=== PATIENT | female | born 1995 | race Caucasian/White ===

== ENCOUNTER 2017-02-11 13:05 | Inpatient (IN) | payer OTHER ==
[~2017-02-11] VITALS: Ht 170.2 cm; Wt 51.0 kg
--- NOTE | ~2017-02-11 | A ---
[facility] Nutrition Therapy DATE: 02/12/17 Patient: PHILLIP BURGOS Physician: MARIA G Address: [address] [place] [address] Room/Bed: [address], Zip: [place] [address] Admit Date: 02/11/17 Date of : [birth year] Height: 5 7 Weight: 112 51 NUTRITIONAL ASSESSMENT: REASON: Low BMI + Dx + NPO status in ICU Admitting dx: 21 y/o female admitted with DKA, drug abuse PMH: No H&P available for review at this time Anthropometrics: Ht: 67", Wt: 112 lbs, BMI: 17 (underweight) Labs: K+ 3.0, Phos 2.1, glucose 208, POC 106-260, A1C pending Meds: phenergan/zofran prn, insulin drip, D50 I/O & Bowel function: Last BM unknown Skin Integrity: No issues, no edema Assessment: See admitting dx and PMH as stated above. Chart unavailable for review at this time, no H&P available. RN provided information during rounds. Pt is clinically underweight however her weight appears stable per past weights in [employer]. She has a hx of drug abuse and questionable non-compliance. No nutrition queries or malnutrition risk screen available at this time. She is NPO on an insulin drip and is sleeping at this time, therefore is not appropriate for interview. See RD recs, will follow hospital course to further determine weight hx, adequacy of PO intake and diet education needs. Dx: 1) Underweight r/t dietary habits, drug abuse AEB BMI 17. 2) Altered nutrition-related lab values r/t hx DM AEB glucose POC 106-260, DKA. Intervention: 45 g carb/meal diet once appropriate, diet education? Monitoring, Evaluation and Goals: 1. Tolerance of PO diet advancement with oral intake > 50% of meals. 2. Gradual weight gain towards a healthy BMI range. 3. A1C, glucose, lytes WNL. Monitor: per protocol, criteria to determine if above goals met Recommendations: 1. Once insulin drip is D/C advance to 45-60g carb/meal diet as tolerated. If oral intake is < 50% of meals please order Glucerna shakes BID. [facility] Nutrition Therapy DATE: 02/12/17 Patient: PHILLIP BURGOS Physician: MARIA G Address: [address] [place] [address] Room/Bed: [address], Zip: [place] [address] Admit Date: 02/11/17 Date of : [birth year] Height: 5 7 Weight: 112 51 2. Replace lytes prn (K/Phos low). 3. Please weigh q 3 days for monitoring purposes as the pt is clincally underweight. 4. RD will follow to determine diet education needs as appropriate. Mild nutrition risk Respectfully, Alyce Clarke, BLAYNE, LD [facility] and Nutritional Services [facility] cc: client file
--- NOTE | ~2017-02-11 | EKG ---
PATIENT: PHILLIP BURGOS UNIT #: [id number] Ventricular Rate: 92 BPM Atrial Rate: 92 BPM P-R Interval: 158 ms QRS Duration: 84 ms Q-T Interval: 380 ms QTC Calculation(Bezet): 469 ms P [place]: 17 degrees Calculated R [place]: 60 degrees Calculated T [place]: 30 degrees Diagnosis Line: Normal sinus rhythm Diagnosis Line: Normal ECG Diagnosis Line: No previous ECGs available Diagnosis Line: Confirmed by ERLINDA SMART MD ([id number]) on Diagnosis Line: 02/12/2017 2:00:15 PM INTERPRETING MD: BERRY VELARDE
--- NOTE | ~2017-02-11 | CR72 ---
[facility] A Service of [facility] & [facility] RADIOLOGY TEXT RESULTS PATIENT: PHILLIP BURGOS LOCATION: [place] [id number] : [birth year] UNIT #: [id number] AGE: [address]: Carlos Enrique Boogie MD SEX: F ORDER DR: [id number] [facility] [address] [place], [place] [address] [id number] MR#: [id number] #: [id number] NAME: PHILLIP BURGOS : 1995 SEX: F STUDY DATE/TIME: 02/11/2017 15:45 UNIT: [facility] ROOM: [facility] STUDY DESCRIPTION: CR Chest Single View Portable Attending Physician: Carlos Enrique Boogie M.D. Ordering Physician: Carlos Enrique Boogie M.D. MEDICAL IMAGING REPORT This report is preliminary unless electronic signature is present EXAM Portable chest, 02/11/2017 INDICATION Cough, congestion, pneumonia since this morning. COMPARISON 09/08/2014 FINDINGS A portable view of the chest was obtained. Heart size and vascularity are normal and the lungs are clear and the bones are unremarkable. IMPRESSION No active disease. Dictated by... Pascual Lu M.D. THIS IS AN ELECTRONICALLY VERIFIED REPORT Pascual Lu M.D. at 02/12/2017 6:09 AM KE/wendy TD: 02/12/2017 05:08 JOB #: [id number] MEDICAL IMAGING REPORT Page 1 of 1 COPY
--- NOTE | ~2017-02-11 | HP ---
Unit #: [id number] #: [id number] Patient: PHILLIP BURGOS [id number] [place], [place] [address] [id number] I MR#: [id number] NAME: PHILLIP BURGOS. ROOM: [facility] Age: 21 Sex: F Admission Date: 02/11/2017 : 1995 Attending Physician: Carlos Enrique Boogie M.D. HISTORY AND PHYSICAL REASON FOR ADMISSION Nausea, vomiting and high blood sugar. HISTORY OF PRESENT ILLNESS This is a 21-year-old female with past medical history significant for polysubstance abuse and diabetes who presented to the emergency room at [facility] with nausea, vomiting and high blood sugar. The patient stated that she did not take her medication, and she did not clarify why. Per her mom, this is a frequent presentation for the patient, and she is very noncompliant. The patient denied any other symptoms, like fever, chills, cough, shortness of breath, diarrhea. However, per nursing staff, the patient had copious amount of vaginal discharge on presentation. PAST MEDICAL HISTORY 1. Diabetes. 2. Polysubstance abuse. PAST SURGICAL HISTORY None. SOCIAL HISTORY The patient smokes less than a pack per day for the last 3 years. No history of alcohol abuse, but she has a history of marijuana abuse. FAMILY HISTORY Diabetes and hypertension. ALLERGIES No known drug allergies. HOME MEDICATIONS We are trying to obtain it from her pharmacy. REVIEW OF SYSTEMS A 12-point review of systems was obtained and was negative except for what was mentioned in the HPI. PHYSICAL EXAMINATION GENERAL: The patient is sleepy but easy to arouse. No acute distress. VITAL SIGNS: Blood pressure 119/62, respiratory rate 16, O2 saturation 98%. HEENT: Atraumatic, normocephalic. PERRLA, EOMI. Unit #: [id number] #: [id number] Patient: PHILLIP BURGOS NECK: Supple. No JVD. No lymphadenopathy. CHEST: Clear to auscultation bilaterally. HEART: S1, S2. No murmur, gallops or rubs. ABDOMEN: Soft, nontender. Bowel sounds positive. No hepatosplenomegaly. EXTREMITIES: No edema or cyanosis. SKIN: No rashes. DIGESTER: Awake, alert, oriented x3. No focal motor/sensory deficits. LABS AND OTHER TESTS LABORATORY: CO2 15, phosphorous 2.1, sodium 137. White blood count 12.3, hemoglobin 15.2, platelets 306. IMAGING TESTS: Chest x-ray is clean, and no acute infiltrate. ASSESSMENT 1. DKA. 2. Vaginitis/bacterial vaginosis. 3. Polysubstance abuse. PLAN 1. Patient will be continued on insulin drip and IV fluid per DKA protocol. 2. Will start the patient on clindamycin 300 mg p.o. b.i.d. for 7 days for bacterial vaginosis. 3. Will give the patient azithromycin 1 gram p.o. x1 for possible gonorrhea and chlamydia. 4. NPO for now but we will reassess once her anion gap corrects. 5. DVT prophylaxis. Will add Lovenox if she is inactive. Case was discussed with the patient and her mother and staff. NOTE: Critical care time spent on this patient was 32 minutes, including lcjb-by-tago time with the patient and data review and medical literature research. Dictated by Jess Carias TD: 02/12/2017 16:15 JOB #: [id number] HISTORY AND PHYSICAL Page 1 of 1 X ALBERTO LOZANO MD HISTORY AND PHYSICAL
[2017-02-11 15:37] LABS: ARTERIAL BLD GAS O2 SATURATION 97.6 % (90.0-100.0); ARTERIAL BLOOD GAS CARBOXY HB 1.1 %sat (0.0-9.0); ARTERIAL BLOOD GAS HCO3 12.8 mmol/L; ARTERIAL BLOOD GAS MET HB 0.3 %sat (0.0-2.0); ARTERIAL BLOOD GAS PCO2 28.9 mmHg (35.0-45.0); ARTERIAL BLOOD GAS pH 7.254 (7.350-7.450)
[2017-02-11 15:39] LABS: ARTERIAL BLOOD GAS ALLEN TEST N; ARTERIAL BLOOD GAS ART SITE RIGHT RADIAL; ARTERIAL DRAW? YES
[2017-02-11 15:54] LABS: BASOPHIL# 0.1 X10e3 (0-0.3); BASOPHIL% 0.8 % (0-2.5); HEMATOCRIT 50.2 % (35.0-45.0); HEMOGLOBIN 16.8 gm/dL (12.0-16.0); LYMPHOCYTE# 2.1 X10e3 (1.0-3.5); LYMPHOCYTE% 16.8 % (17.0-45.0); MEAN CELL VOLUME 93.8 FL (83-96); MEAN CORPUSCULAR HEMOGLOBIN 31.5 PG (28-34); MEAN CORPUSCULAR HGB CONC 33.6 g/dL (30-36); MEAN PLATELET VOLUME 7.6 FL (6.5-11.5); MONOCYTE# 0.7 X10e3 (0-1.0); MONOCYTE% 5.8 % (3.0-12.0); NEUTROPHIL# 9.7 X10e3 (1.5-7.1); NEUTROPHIL% 76.6 % (40-75); PLATELET COUNT 344 X10e3 (140-420); RED BLOOD COUNT 5.35 X10e (3.90-5.30); RED CELL DISTRIBUTION WIDTH 13.9 % (11.0-15.5); WHITE BLOOD COUNT 12.7 X10e3 (4.0-10.5)
[2017-02-11 15:57] LABS: DIFF IND NO
[2017-02-11] MEDS ORDERED: HUMALOG KW100 UNIT/1 (16:12)
[2017-02-11] MEDS ORDERED: LANTUS SOL100 UNIT/1 SUBQ (16:12)
[2017-02-11 16:25] LABS: ALBUMIN SERUM 4.3 g/dL (3.5-5.0); BILIRUBIN,TOTAL 1.5 mg/dL (0.2-2.0); BUN/CREATININE RATIO 38.57; CALCIUM SERUM 9.6 mg/dL (8.4-10.2); CREATININE SERUM 0.7 mg/dL (0.6-1.4); GLOM FILT RATE Estimated 125.6 mL/min (>60); POTASSIUM 4.2 mmol/L (3.5-5.1); PROTEIN TOTAL SERUM 7.4 g/dL (6.0-8.3)
[2017-02-11 16:34] LABS: BETA HYDROXYBUTYRATE 3.75 MMOL/L (0.02-0.27)
[2017-02-11 19:48] LABS: URINE SOURCE CATH
[2017-02-11 19:55] LABS: URINE APPEARANCE CLEAR; URINE BILIRUBIN NEG (NEG); URINE BLOOD NEG (NEG); URINE COLOR YELLOW; URINE GLUCOSE 500 MG/DL (NEG); URINE KETONE 3+ (NEG); URINE LEUKOCYTE ESTERASE NEG (NEG); URINE NITRATE NEG (NEG); URINE PROTEIN 3+ (NEG); URINE SPECIFIC GRAVITY 1.026 (1.003-1.035)
[2017-02-11 19:57] LABS: URINE BACTERIA AUWI NEG (NEGATIVE); URINE SQUAMOUS EPITHELIAL CELL FEW /[HPF]
[2017-02-11 20:05] LABS: CULTURE INDICATED? NO
[2017-02-11 20:36] LABS: BUN/CREATININE RATIO 35.71; CALCIUM SERUM 8.9 mg/dL (8.4-10.2); CREATININE SERUM 0.7 mg/dL (0.6-1.4); GLOM FILT RATE Estimated 125.6 mL/min (>60); POTASSIUM 3.8 mmol/L (3.5-5.1)
[2017-02-12 01:35] LABS: BUN/CREATININE RATIO 34.28; CALCIUM SERUM 9.2 mg/dL (8.4-10.2); CREATININE SERUM 0.7 mg/dL (0.6-1.4); GLOM FILT RATE Estimated 125.6 mL/min (>60); POTASSIUM 3.6 mmol/L (3.5-5.1)
[2017-02-12 06:38] LABS: BASOPHIL# 0.1 X10e3 (0-0.3); BASOPHIL% 0.5 % (0-2.5); EOSINOPHIL% 0.1 % (0.0-7.0); HEMATOCRIT 45.8 % (35.0-45.0); HEMOGLOBIN 15.2 gm/dL (12.0-16.0); LYMPHOCYTE% 16.3 % (17.0-45.0); MEAN CELL VOLUME 94.8 FL (83-96); MEAN CORPUSCULAR HEMOGLOBIN 31.5 PG (28-34); MEAN CORPUSCULAR HGB CONC 33.2 g/dL (30-36); MEAN PLATELET VOLUME 7.5 FL (6.5-11.5); MONOCYTE# 0.9 X10e3 (0-1.0); MONOCYTE% 7.7 % (3.0-12.0); NEUTROPHIL# 9.3 X10e3 (1.5-7.1); NEUTROPHIL% 75.4 % (40-75); PLATELET COUNT 306 X10e3 (140-420); RED BLOOD COUNT 4.83 X10e (3.90-5.30); RED CELL DISTRIBUTION WIDTH 14.1 % (11.0-15.5); WHITE BLOOD COUNT 12.3 X10e3 (4.0-10.5)
[2017-02-12 06:39] LABS: DIFF IND NO
[2017-02-12 07:06] LABS: CALCIUM SERUM 9.3 mg/dL (8.4-10.2); CREATININE SERUM 0.7 mg/dL (0.6-1.4); GLOM FILT RATE Estimated 125.6 mL/min (>60); MAGNESIUM 1.6 mg/dL (1.6-3.0); PHOSPHOROUS 2.1 mg/dL (2.5-4.6)
[2017-02-12 13:30] LABS: BUN/CREATININE RATIO 28.33; CALCIUM SERUM 8.8 mg/dL (8.4-10.2); CREATININE SERUM 0.6 mg/dL (0.6-1.4); GLOM FILT RATE Estimated 132.1 mL/min (>60); POTASSIUM 3.4 mmol/L (3.5-5.1)
[2017-02-14 07:22] LABS: CHLAMYDIA TRACH Not Detected (Not Detected); N GONOR Not Detected (Not Detected)
== END 2017-02-12 16:09 | disposition left against medical advice (07) | DRG 638 ==
LOC: CEDOF 14:32 → UNDOADMIN 14:32 → CICCU3 14:40 → CEDOF 14:40 → CICCU3 15:15
PROVIDERS: Internal Medicine; Internal Medicine Pulmonary Disease
DX: E13.10 Other specified diabetes mellitus with ketoacidosis without coma (principal); E44.1 Mild protein-calorie malnutrition; Z68.1 Body mass index [BMI] 19.9 or less, adult; F17.210 Nicotine dependence, cigarettes, uncomplicated; F12.10 Cannabis abuse, uncomplicated; Z79.84 Long term (current) use of oral hypoglycemic drugs; N76.0 Acute vaginitis; Z91.19 Patient's noncompliance with other medical treatment and regimen
CPT/HCPCS: 36600; 71010; 80048; 80053; 81003; 82010; 82150; 82803; 82947; 83036; 83690; 83735; 84100; 85025; 87040; 87491; 87591; 87808; 87905; 93005; J1815; J2550

== ENCOUNTER 2017-02-13 08:18 | Inpatient (IN) | payer OTHER ==
[~2017-02-13] VITALS: Ht 170.2 cm; Wt 57.0 kg
--- NOTE | ~2017-02-13 | CO ---
Unit #: [id number] #: [id number] Patient: PHILLIP BURGOS [id number] [facility] [address]. [place], [place] [address] [id number] I MR#: [id number] NAME: PHILLIP BURGOS. ROOM: [facility] Age: 21 Sex: F Admission Date: 02/13/2017 : 1995 Attending Physician: Jazmyn Gibbs M.D. Primary Care Physician: Costa Abbasi M.D. Consultation Date: 02/13/2017 CONSULTATION REPORT REASON FOR CONSULTATION ICU management. High blood sugar. HISTORY OF PRESENT ILLNESS This is a 21-year-old female who is well known to our service from before, who just left against medical advice from [facility] yesterday after a short admission for diabetic ketoacidosis. Apparently the patient is well known to have noncompliance and leaving AMA for the same reason every admission. She was admitted to multiple hospitals, mainly at [facility] in the past. Last admission was here at [facility] for diabetic ketoacidosis and SCDs. The patient signed herself out against medical advice yesterday and went home. However, she called EMS this morning feeling bad, with nausea and high blood sugar. PAST MEDICAL HISTORY 1. Diabetes. 2. Polysubstance abuse. 3. Bacterial vaginosis. PAST SURGICAL HISTORY None. SOCIAL HISTORY The patient smokes less than a pack per day for the last three years. No history of alcohol or IV drug abuse, but she is positive for marijuana and methamphetamine. FAMILY HISTORY Diabetes and hypertension. ALLERGIES No known drug allergies. HOME MEDICATIONS Insulin, but the patient is very noncompliant. REVIEW OF SYSTEMS Twelve point review of systems was obtained and negative except for what Unit #: [id number] #: [id number] Patient: PHILLIP BURGOS was mentioned in the history of present illness. PHYSICAL EXAMINATION GENERAL: The patient is awake and alert, in no acute distress, but she appears sleepy. VITALS: Blood pressure us 121/69, respiratory rate 16, O2 saturations 98% on room air. HEENT: Atraumatic, normocephalic. Pupils equally round and reactive to light and accommodation. Extraocular muscles intact. NECK: Supple. No jugular venous distension. No lymphadenopathy. CHEST: Clear to auscultation bilaterally. HEART: S1 and S2. No murmur, gallop or rubs. ABDOMEN: Soft, nontender and bowel sounds positive. No hepatosplenomegaly. EXTREMITIES: No edema or cyanosis. SKIN: No rashes. NEUROLOGIC: Awake, alert and oriented times three. No focal motor/sensory deficits. DIAGNOSTIC STUDIES LABORATORY: Bicarb 5, calcium 7.8, phosphorus 2.1, white blood cell count 10.5, hemoglobin 17.6. ASSESSMENT 1. Severe diabetic ketoacidosis. 2. Bacterial vaginosis. 3. Noncompliance. 4. Polysubstance abuse. PLAN 1. The patient will be admitted to the ICU for at least the next 24 hours. 2. Strict control of her blood sugar through IV insulin and IV hydration. 3. Will watch her family as they were noted yesterday to bring her some food while she was still in the diabetic ketoacidosis condition. 4. Will continue clindamycin and the patient received 1 g of azithromycin yesterday for chlamydia and gonorrhea. 5. DVT prophylaxis. I would like to thank Dr. Gibbs for allowing me to be part of this patient's care. Dictated by... Jess Carias TD: 02/13/2017 14:21 JOB #: [id number] Unit #: [id number] #: [id number] Patient: PHILLIP BURGOS CONSULTATION REPORT Page 1 of 1 X ALBERTO LOZANO MD CONSULTATION REPORT
--- NOTE | ~2017-02-13 | A ---
[facility] Nutrition Therapy DATE: 02/14/17 Patient: PHILLIP BURGOS Physician: ERNESTINE Address: [address] [place] [address] Room/Bed: [address] [place] [address], Zip: [place] [id number] Admit Date: 02/13/17 Date of : [birth year] Height: 5 7 Weight: 125 57 NUTRITIONAL ASSESSMENT: REASON: PT SEEN FOR DX, LOW BMI PT IS 21 Y.O. FEMALE ADMITTED FOR DKA PMH: DM, POLYSUBSTANCE ABUSE, NONCOMPLIANCE Anthropometrics: 5'7", WT: 119# (PER PT) (54 KG), BMI: 18.6, 88%IBW -WEIGHTS HAVE RANGED 110-123# SINCE 02/11/17 Labs: GLU: 181, NA+:134, CREAT: 0.5, ALB: 3.0, M.4, PHOS: 2.1 (02/12/17), A1c: 12.9 (REFLECTS POOR GLUCOSE MANAGEMENT) Meds: LEVEMIR, NOVOLOG, NACL, KCL, ZOFRAN I/O & Bowel function: 5967/2 Skin Integrity: NO KNOWN SKIN ISSUES, NO EDEMA Assessment: CHART REVIEWED AND EVENTS NOTED. PT SEEN FOR DX + PT UNDERWEIGHT. OF NOTE, RD ASSESSED PT ON 02/12/17 IN ICU, PT LEFT AMA. PT WAS RE-ADMITTED FOR DX ABOVE. PT SLEEPY/LETHARGIC AT TIME OF VISIT REPORTING GOOD PO INTAKE AND APPETITE. MOTHER AT BEDSIDE REPORTS PT "EATS LIKE A HORSE". PT ADDS N/V/D SUBSIDING THIS AM. OF NOTE, PT'S WEIGHTS SINCE 02/11/17 HAVE BEEN 110-123#. PT CURRENTLY ON CC DIET. RD ENCOURAGED ADEQUATE KCAL AND PROTEIN INTAKE, PT AGREED TO GLUCERNA SHAKES BID. RD ALSO PROVIDED WRITTEN AND VERBAL CC DIET EDUCATION. PT AND MOTHER DEMONSTRATED UNDERSTANDING OF THE TOPIC, REPORTED PT DOES NOT FOLLOW ANY SPECIFIC DIET AT HOME. PT REPORTED NO DIET QUESTIONS AT THIS TIME. RD TO FOLLOW. Dx: 1. UNDERWEIGHT R/T LIFESTYLE, DRUG ABUSE, DIETARY HABITS AEB BMI OF 18.6, 88%IBW. 2. IMPAIRED GLYCEMIC CONTROL R/T CURRENT DIAGNOSIS, PMH AEB ELEVATED BLOOD SUGAR LEVELS, A1c OF 12.9. Intervention: 1. CC DIET 2. GLUCERNA SHAKES BID 3. CC DIET EDUCATION Monitoring, Evaluation and Goals: 1. TOLERANCE OF PO DIET ADVANCEMENT WITH ORAL INTAKE >50% OF MEALS AND SUPPLEMENTS 2. GRADUAL WEIGHT GAIN TOWARDS HEALTHY BMI RANGE 3. LABS; WNL: GLU, LYTES WNL [facility] Nutrition Therapy DATE: 02/14/17 Patient: PHILLIP BURGOS Physician: ERNESTINE Address: [address] [place] [address] Room/Bed: [address] [place] [address], Zip: [place] [address] Admit Date: 02/13/17 Date of : [birth year] Height: 5 7 Weight: 125 57 MONITOR: PER PROTOCOL, CRITERIA TO DETERMINE IF ABOVE GOALS MET Recommendations: 1. PLEASE ORDER SAIRA GLUCERNA SHAKES BID W/MEALS 2. REPLACE LYTES PRN (MG+, PHOS LOW) 3. PLEASE WEIGH q 3 DAYS FOR MONITORING PURPOSES THE PT IS CLINICALLY UNDERWEIGHT 4. CONSULT RD IF FURTHER DIET EDUCATION REQUESTED RD WILL F/U PER PROTOCOL PT IS MILDLY COMPROMISED Respectfully, SARA COKER MS, RD, LD Food and Nutritional Services [facility] cc: client file
--- NOTE | ~2017-02-13 | EKG ---
PATIENT: PHILLIP BURGOS UNIT #: [id number] Ventricular Rate: 110 BPM Atrial Rate: 110 BPM P-R Interval: 184 ms QRS Duration: 80 ms Q-T Interval: 348 ms QTC Calculation(Bezet): 470 ms P [place]: -9 degrees Calculated R [place]: -6 degrees Calculated T [place]: 29 degrees Diagnosis Line: Sinus tachycardia Diagnosis Line: Otherwise normal ECG Diagnosis Line: When compared with ECG of 11-FEB-2017 15:24, Diagnosis Line: Questionable change in QRS axis Diagnosis Line: Confirmed by ELY MOTTA MD ([id number]) on 02/13/2017 Diagnosis Line: 7:44:46 PM INTERPRETING MD: ÁNGELA VELARDE
--- NOTE | ~2017-02-13 | CR72 ---
[facility] A Service of [facility] & [facility] RADIOLOGY TEXT RESULTS PATIENT: PHILLIP BURGOS LOCATION: [address] : [birth year] UNIT #: [id number] AGE: [address]: Jazmyn Gibbs MD SEX: F ORDER DR: [id number] [facility] [address] [place], [place] [address] [id number] MR#: [id number] Acc #: [id number] NAME: PHILLIP BURGOS. : 1995 SEX: F STUDY DATE/TIME: 02/13/2017 9:44 UNIT: [facility] ROOM: STUDY DESCRIPTION: CR Chest Single View Portable Attending Physician: Jorge Luis Rod M.D. Ordering Physician: Jorge Luis Rod M.D. Primary Care Physician: Costa Abbasi M.D. MEDICAL IMAGING REPORT This report is preliminary unless electronic signature is present EXAM Portable chest, 02/13. INDICATION Shortness of air today. Diabetic ketoacidosis. COMPARISON 02/11/2017 FINDINGS A single AP portable view of the chest shows both lungs to be clear. The heart is normal in size. The mediastinal contour is normal. No significant bone abnormalities are seen. IMPRESSION Normal portable chest. Dictated by... Adria Christianson Jr., M.D. THIS IS AN ELECTRONICALLY VERIFIED REPORT Adria Christianson Jr., M.D. at 02/13/2017 4:39 PM LIBERTAD/kale TD: 02/13/2017 10:58 JOB #: [id number] MEDICAL IMAGING REPORT Page 1 of 1 COPY
--- NOTE | ~2017-02-13 | DS ---
Unit #: [id number] #: [id number] Patient: PHILLIP BURGOS [id number] [address] [address] [id number] I MR#: [id number] NAME: PHILLIP BURGOS ROOM: 242 Age: 21 Sex: F Admission Date: 02/13/2017 : 1995 Discharge Date: Attending Physician: Dulce Maria Maldonado M.D. Primary Care Physician: Costa Abbasi M.D. DISCHARGE SUMMARY DISCHARGE DIAGNOSES 1. Diabetic ketoacidosis secondary to noncompliance with medication. She has insulin at home, but she is not taking it. 2. Anion gap metabolic acidosis secondary to diabetic ketoacidosis. 3. Hypokalemia. 4. Hypomagnesemia. 5. Bacterial vaginosis. 6. Polysubstance abuse. 7. Smoking. 8. Mild hyponatremia (1) secondary to diabetic ketoacidosis. 9. Hypophosphatemia. 10. Mild hypocalcemia. CONSULTATIONS None. PROCEDURES None. DIAGNOSTIC TESTING LAB DATA: Blood cultures negative. Sodium 134, potassium 3.5, creatinine 0.5. Liver enzymes normal. Magnesium 1.4. Chlamydia, trichomonas negative. Gonorrhea negative. ABG on admission - pH 7.25, carbon dioxide 28, oxygen 109. Amylase and lipase negative. Beta hydroxybutyrate 3.75. Bacterial vaginosis present. Urinalysis shows RBCs 5-10, WBCs negative, bacteria negative. Hemoglobin A1C 12.9. Urine drug screen positive for marijuana and opiates. ALLERGIES None. DISCHARGE MEDICATIONS 1. Clindamycin 300 p.o. b.i.d. 2. Lantus 30 units subcu at bedtime. 3. Humalog 1 unit subcu for every 5 units of carbs. 4. Florastor 250 p.o. daily. 5. Magnesium oxide 400 p.o. b.i.d. HOSPITALIZATION COURSE A 21 year old admitted because of DKA. DKA secondary to noncompliance. Patient was admitted to ICU with insulin drip with close monitoring with IV fluids. Currently DKA is resolved. Patient says she has insulin at home. Continue with home insulin with Unit #: [id number] #: [id number] Patient: PHILLIP BURGOS insulin with carbs. Bacterial vaginosis. The patient received clindamycin. I gave a prescription for 7 more days. Polysubstance abuse. Advised to quit. Noncompliance. I discussed in detail with her regarding the compliance of her insulin. She understands, verbally confirms. Multiple electrolyte imbalances. Replaced with protocol. DISCHARGE PLAN 1. The patient will be discharged home. 2. Follow with family physician in 2 weeks' time. Dictated by... Jess Miller TD: 02/14/2017 15:40 JOB #: [id number] DISCHARGE SUMMARY Page 1 of 1 X Dulce Maria Maldonado MD X DISCHARGE SUMMARY
--- NOTE | ~2017-02-13 | HP ---
Unit #: [id number] #: [id number] Patient: PHILLIP BURGOS [id number] [address] [address] [id number] I MR#: [id number] NAME: PHILLIP BURGOS. ROOM: 560[address] Age: 21 Sex: F Admission Date: 02/13/2017 : 1995 Attending Physician: Jazmyn Gibbs M.D. Primary Care Physician: Costa Abbasi M.D. HISTORY AND PHYSICAL CHIEF COMPLAINT DKA. HISTORY OF PRESENT ILLNESS The patient is a 21-year-old female with past medical history of diabetes and polysubstance abuse who presented to the emergency department for evaluation of the above. The patient was admitted yesterday for DKA and left against medical advice. The patient has had nausea, vomiting. She denies any fever or chills, no cough or cold symptoms. She was noted to have a copious amount of vaginal discharge. She has not been taking her insulin. She uses methamphetamine. She is not sure when her last use was. She denies IV drug use. In the emergency department, initial pulse and blood pressure were 97 and 145/97 respectively. Initial glucose was 506. Arterial blood gas notable for pH of 7.106. Anion gap is 21. She was given 2 L of normal saline as well as 4 mg of morphine, 4 mg of Zofran. She is currently on insulin drip. She is being admitted to [facility] for evaluation and further treatment. PAST MEDICAL HISTORY Diabetes. The patient's hemoglobin A1c is 12.9. PAST SURGICAL HISTORY None. SOCIAL HISTORY The patient is living with her mother. Per the patient's aunt, the mother is a substance abuser as well. The patient smokes cigarettes. She also snorts methamphetamine. She denies IV drug use. She denies alcohol use. FAMILY HISTORY Notable for diabetes. ALLERGIES No known allergies. HOME MEDICATIONS 1. Lantus 50 units daily. 2. NovoLog 1 unit per 5 carbs. Home medications will need to be reviewed and verified. Unit #: [id number] #: [id number] Patient: PHILLIP BURGOS REVIEW OF SYSTEMS A complete review of systems is negative except as indicated in the HPI. DIAGNOSTIC STUDIES CARDIOVASCULAR: EKG shows sinus tachycardia with a rate of 110 beats/minute. LABORATORY: Arterial blood gas shows pH of 7.106, pCO2 of 15.4, pO2 of 107 on room air. Initial glucose is 506. Complete blood count notable for hemoglobin and hematocrit of 17.6 and 52.9 respectively. Urine beta hCG is negative. IMAGING: Chest x-ray is normal. Hemoglobin A1c 12.9. Comprehensive metabolic panel notable for glucose of 571, CO2 is 5, anion gap is 21, calcium 7.8, alkaline phosphatase 117. Beta-hydroxybutyrate is 10.35. Amylase and lipase are normal. PHYSICAL EXAMINATION VITAL SIGNS: Temperature is 97.6, pulse 974, respirations 26, blood pressure 145/97. Oxygen saturation 100% on room air. GENERAL: The patient is a female who is awake and alert, in no acute distress. HEENT: The head is atraumatic. Mucous membranes are dry. NECK: Supple. Trachea is midline. CARDIOVASCULAR: Tachycardic in the 110s. LUNGS: Clear to auscultation bilaterally with no increased work of breathing. ABDOMEN: Soft. She is mildly tender to palpation throughout. Bowel sounds are present in all four quadrants. EXTREMITIES: Nontender with no pedal edema. NEUROLOGIC: The patient is awake and alert. She follows commands. PSYCH: Mood and affect are normal. The patient is cooperative. SKIN: Skin of examined areas is warm and dry. ASSESSMENT The patient is a 21-year-old female with: 1. DKA: The patient is currently on insulin drip. 2. Anion gap metabolic acidosis with an anion gap of 21. 3. Hypocalcemia. 4. Bacterial vaginosis: The patient received azithromycin yesterday per Dr. Bruno's dictation. She was also started on clindamycin. 5. Polysubstance abuse with unknown last use. 6. Tobacco abuse. PLAN 1. Admit to ICU. 2. DKA protocol with insulin drip. 3. Check magnesium level. Unit #: [id number] #: [id number] Patient: PHILLIP BURGOS 4. Urinalysis with culture and sensitivity. 5. Urine tox screen. 6. Consult Dr. Bruno regarding ICU admission. 7. Clindamycin for bacterial vaginosis. 8. Potassium and magnesium protocol. 9. Repeat labs in the morning. 10. SCDs for DVT prophylaxis. 11. Care management/social work consult regarding polysubstance abuse and rehab options. 12. Additional workup and consultants based on above. Thirty-five minutes critical care time spent in the care of this patient (12:20 to 12:55 p.m.). Dictated by Jazmyn Gibbs M.D. SHEREE/rambo TD: 02/13/2017 13:32 JOB #: [id number] HISTORY AND PHYSICAL Page 1 of 1 X Jazmyn Gibbs MD X HISTORY AND PHYSICAL
[~2017-02-13 08:18] MED LIST: HUMALOG KW100 UNIT/1; LANTUS SOL100 UNIT/1 SUBQ
[2017-02-13 08:36] LABS: ARTERIAL BLD GAS O2 SATURATION 95.8 % (90.0-100.0); ARTERIAL BLOOD GAS CARBOXY HB 1.3 %sat (0.0-9.0); ARTERIAL BLOOD GAS HCO3 4.8 mmol/L; ARTERIAL BLOOD GAS MET HB 0.7 %sat (0.0-2.0)
[2017-02-13 08:39] LABS: ARTERIAL BLOOD GAS pH 7.106 (7.350-7.450)
[2017-02-13 08:40] LABS: ARTERIAL BLOOD GAS ALLEN TEST NORMAL; ARTERIAL BLOOD GAS ART SITE RIGHT RADIAL; ARTERIAL BLOOD GAS PCO2 15.4 mmHg (35.0-45.0); ARTERIAL DRAW? YES
[2017-02-13 09:19] LABS: BASOPHIL% 0.2 % (0-2.5); DIFF IND NO; HEMATOCRIT 52.9 % (35.0-45.0); HEMOGLOBIN 17.6 gm/dL (12.0-16.0); LYMPHOCYTE# 1.6 X10e3 (1.0-3.5); LYMPHOCYTE% 15.1 % (17.0-45.0); MEAN CELL VOLUME 96.9 FL (83-96); MEAN CORPUSCULAR HEMOGLOBIN 32.2 PG (28-34); MEAN CORPUSCULAR HGB CONC 33.2 g/dL (30-36); MEAN PLATELET VOLUME 9.1 FL (6.5-11.5); MONOCYTE# 0.5 X10e3 (0-1.0); NEUTROPHIL# 8.4 X10e3 (1.5-7.1); NEUTROPHIL% 79.7 % (40-75); PLATELET COUNT 383 X10e3 (140-420); RED BLOOD COUNT 5.46 X10e (3.90-5.30); RED CELL DISTRIBUTION WIDTH 14.2 % (11.0-15.5); WHITE BLOOD COUNT 10.5 X10e3 (4.0-10.5)
[2017-02-13 11:44] LABS: BETA HYDROXYBUTYRATE 10.35 MMOL/L (0.02-0.27); BILIRUBIN,TOTAL 1.4 mg/dL (0.2-2.0); CALCIUM SERUM 7.8 mg/dL (8.4-10.2); CREATININE SERUM 0.8 mg/dL (0.6-1.4); MAGNESIUM 1.8 mg/dL (1.6-3.0); POTASSIUM 4.1 mmol/L (3.5-5.1)
[2017-02-13 11:52] LABS: AMYLASE 15 U/L (0-46); LIPASE 12 U/L (22-51)
[2017-02-13 13:05] LABS: URINE SOURCE CLEAN CATCH
[2017-02-13 13:19] LABS: URINE APPEARANCE CLEAR; URINE BILIRUBIN NEG (NEG); URINE BLOOD NEG (NEG); URINE COLOR YELLOW; URINE GLUCOSE NORM (NORM); URINE KETONE NEG (NEG); URINE LEUKOCYTE ESTERASE 2+ (NEG); URINE NITRATE NEG (NEG); URINE PROTEIN NEG (NEG); URINE UROBILINOGEN NORM (NORM)
[2017-02-13 13:23] LABS: AMPHETAMINE NEG (NEG); BARBITURATES NEG (NEG); BENZODIAZEPINES NEG (NEG); COCAINE NEG (NEG); MARIJUANA POS (NEG); OPIATES POS (NEG); TRICYCLIC ANTIDEPRESSANTS NEG (NEG); U METHADONE NEG (NEG)
[2017-02-13 13:34] LABS: CULTURE INDICATED? YES
[2017-02-13 13:47] LABS: URINE SQUAMOUS EPITHELIAL CELL FEW /[HPF]
[2017-02-13 13:48] LABS: U HYALINE CASTS AUWI 0-2 /[LPF]; URBCS1 AUWI 0-2 /[HPF] (0-2); URINE YEAST PRESENT
[2017-02-13 13:49] LABS: UWBCS1 AUWI 0-2 (0-5)
[2017-02-13 15:22] LABS: BUN/CREATININE RATIO 23.33; CALCIUM SERUM 8.1 mg/dL (8.4-10.2); CREATININE SERUM 0.6 mg/dL (0.6-1.4); GLOM FILT RATE Estimated 132.1 mL/min (>60); POTASSIUM 3.6 mmol/L (3.5-5.1)
[2017-02-13 20:28] LABS: BUN/CREATININE RATIO 27.5; CREATININE SERUM 0.4 mg/dL (0.6-1.4); POTASSIUM 3.5 mmol/L (3.5-5.1)
[2017-02-14 01:11] LABS: CALCIUM SERUM 8.5 mg/dL (8.4-10.2); CREATININE SERUM 0.3 mg/dL (0.6-1.4); GLOM FILT RATE Estimated 166.1 mL/min (>60); POTASSIUM 3.4 mmol/L (3.5-5.1)
[2017-02-14 06:56] LABS: BASOPHIL% 0.5 % (0-2.5); EOSINOPHIL% 0.6 % (0.0-7.0); HEMATOCRIT 37.9 % (35.0-45.0); LYMPHOCYTE# 2.2 X10e3 (1.0-3.5); LYMPHOCYTE% 30.5 % (17.0-45.0); MEAN CORPUSCULAR HEMOGLOBIN 32.2 PG (28-34); MEAN CORPUSCULAR HGB CONC 34.7 g/dL (30-36); MEAN PLATELET VOLUME 7.4 FL (6.5-11.5); MONOCYTE# 0.7 X10e3 (0-1.0); MONOCYTE% 9.4 % (3.0-12.0); NEUTROPHIL# 4.2 X10e3 (1.5-7.1); PLATELET COUNT 218 X10e3 (140-420); RED BLOOD COUNT 4.08 X10e (3.90-5.30); RED CELL DISTRIBUTION WIDTH 13.4 % (11.0-15.5); WHITE BLOOD COUNT 7.1 X10e3 (4.0-10.5)
[2017-02-14 06:58] LABS: MEAN CELL VOLUME 92.9 FL (83-96)
[2017-02-14 06:59] LABS: DIFF IND NO; HEMOGLOBIN 13.2 gm/dL (12.0-16.0)
[2017-02-14 07:28] LABS: BILIRUBIN,TOTAL 0.8 mg/dL (0.2-2.0); CALCIUM SERUM 8.6 mg/dL (8.4-10.2); CREATININE SERUM 0.5 mg/dL (0.6-1.4); GLOM FILT RATE Estimated 140.3 mL/min (>60); MAGNESIUM 1.4 mg/dL (1.6-3.0); POTASSIUM 3.5 mmol/L (3.5-5.1); PROTEIN TOTAL SERUM 5.3 g/dL (6.0-8.3)
[2017-02-14] MEDS ORDERED: CLINDAMYCIN PO (15:12)
[2017-02-14] MEDS ORDERED: FLORASTOR PO (15:13)
[2017-02-14] MEDS ORDERED: MAGOX 400400 MG PO (15:14)
== END 2017-02-14 16:38 | disposition home or self-care (01) | DRG 638 ==
LOC: CED 08:18 → C2A 12:55 → CEDOF 12:55 → CED 13:20 → CICCU3 13:46 → CEDOF 13:46 → C2A 02-14 07:44
PROVIDERS: Emergency Medicine; Family Medicine
DX: E13.10 Other specified diabetes mellitus with ketoacidosis without coma (principal); Z68.1 Body mass index [BMI] 19.9 or less, adult; E83.51 Hypocalcemia; Z79.4 Long term (current) use of insulin; N76.0 Acute vaginitis; F19.10 Other psychoactive substance abuse, uncomplicated; F17.210 Nicotine dependence, cigarettes, uncomplicated; Z91.19 Patient's noncompliance with other medical treatment and regimen; R63.6 Underweight
CPT/HCPCS: 36600; 71010; 80048; 80053; 80307; 81003; 82010; 82150; 82803; 82947; 83036; 83690; 83735; 84132; 84703; 85025; 87040; 87086; 93005; 99291; J1815; J2270; J2405; J2765; J3475

== ENCOUNTER 2017-03-07 19:22 | Inpatient (IN) | payer OTHER ==
[~2017-03-07] VITALS: Ht 170.2 cm; Wt 55.5 kg
--- NOTE | ~2017-03-07 | EKG ---
PATIENT: PHILLIP BURGOS UNIT #: [id number] Ventricular Rate: 100 BPM Atrial Rate: 100 BPM P-R Interval: 178 ms QRS Duration: 88 ms Q-T Interval: 384 ms QTC Calculation(Bezet): 495 ms P [place]: 74 degrees Calculated R [place]: 53 degrees Calculated T [place]: 46 degrees Diagnosis Line: Normal sinus rhythm Diagnosis Line: Prolonged QT Diagnosis Line: Abnormal ECG Diagnosis Line: When compared with ECG of 13-FEB-2017 09:38, Diagnosis Line: Questionable change in QRS axis Diagnosis Line: Confirmed by JOSR CHISHOLM MD ([id number]) on Diagnosis Line: 03/11/2017 4:39:25 PM INTERPRETING MD: JUAN R
--- NOTE | ~2017-03-07 | A ---
[facility] Nutrition Therapy DATE: 03/08/17 Patient: PHILLIP BURGOS Physician: TUNG Address: [address] [place] [address] Room/Bed: [address], Zip: [place] [address] Admit Date: 03/07/17 Date of : [birth year] Height: 5 7 Weight: 122 55.5 NUTRITIONAL ASSESSMENT: REASON: Seen due to diagnosis, low BMI Admitting dx: 21 y/o female admitted with DKA PMH: T1DM, PSA, DKA, medical non-compliance Anthropometrics: Ht: 67", Wt: 55.5 kg (122 lbs), BMI: 17 (underweight), 90% IBW Labs: glucose 185, POC 153-266, A1C 12.9 (02/13/17), BUN 28 Meds: Zofran prn, reglan, IVF, insulin drip, pepcid, D50%, kcl, nacl I/O & Bowel function: Last BM not documented Skin Integrity: No issues, no edema Assessment: Chart reviewed, events noted. See admitting dx and PMH as stated above. Patient with recent admission (~3 weeks ago) for DKA, admitted yesterday for the same. Has hx of PSA and medcal non-compliance. Glucose was 480 on admission, now better controlled. RD previously assessed x 2 last admission with most recent assessment on 02/14/17; note reviewed. The patient and her mother were provided diet education at that time and the mother reported the patient "eats like a horse." No recent weight loss suspected based on weight history. She is currently NPO, on an insulin drip. She is sleeping at this time and is not appropriate for interview. See recs below, will follow hospital course. Dx: 1) Underweight r/t T1DM, drug abuse AEB BMI 17, 90% IBW. 2) Altered nutrition related lab values r/t medical non-compliance AEB DKA, A1C 12.9, glucose POC 153-266. Intervention: CC diet, insulin regimen, diet ed? Monitoring, Evaluation and Goals: 1. Tolerance of oral diet advancement with PO intake > 50% of meals. 2. Improvement in blood glucose, A1C level. 3. Gradual weight gain towards a healthy BMI range. Monitor: per protocol, criteria to determine if above goals met Recommendations: [facility] Nutrition Therapy DATE: 03/08/17 Patient: PHILLIP BURGOS Physician: TUNG Address: [address] [place] [address] Room/Bed: [facility] [facility], Zip: [place] [address] Admit Date: 03/07/17 Date of : [birth year] Height: 5 7 Weight: 122 55.5 1. Once able advance oral diet to consistent carb (60g/meal) diet as tolerated. Once diet advanced order chocolate Glucerna shakes BID if PO intake is < 50% of meals to promote weight gain. 2. Optimize insulin regimen to promote adequate blood glucose control. 3. RD previously provided diet education on 02/14/17. Please consult if further education is needed. RD will follow Mild-moderate nutrition risk Respectfully, Alyce Clarke, BLAYNE, TOÑ[facility] [employer] [facility] cc: client file
--- NOTE | ~2017-03-07 | HP ---
Unit #: [id number] #: [id number] Patient: PHILLIP BURGOS [id number] [address] [address] [id number] I MR#: [id number] NAME: PHILLIP BURGOS. ROOM: [facility] Age: 21 Sex: F Admission Date: 03/07/2017 : 1995 Attending Physician: Keren Amado M.D. Primary Care Physician: Costa Abbasi M.D. HISTORY AND PHYSICAL CHIEF COMPLAINT Diabetic ketoacidosis with intractable nausea and vomiting. HISTORY This 21-year-old, type 1 diabetic female is admitted for DKA. Patient, herself, is an extremely poor historian and no family is present. When I ask her how long she has been ill, she states "forever." She presented to this emergency department tonight for nausea and vomiting with an Accu-Chek at home reading high for which she took 20 units of NovoLog. When she presented to this emergency department, her serum glucose was 480, she has a CO2 of 7 and anion gap of 25. On ABG, her pH is 7.16. She was bolused with 2 liters of saline, given 5 units of IV regular insulin, and 2 doses of Zofran. Patient was last admitted to this facility three weeks ago for diabetic ketoacidosis. She is poorly compliant with her insulin at home. PAST MEDICAL HISTORY 1. Type 1 diabetes mellitus, recently admitted for diabetic ketoacidosis. 2. Polysubstance abuse. ALLERGIES None. HOME MEDICATIONS Unknown. FAMILY HISTORY Positive for diabetes mellitus. SOCIAL HISTORY I am unsure of the patient's current social history. She was living with her mother who apparently has a history of substance abuse per old records. Patient smokes 1/2 pack per day of tobacco, does not drink alcohol. Per last hospitalization three weeks ago, she does use illicit drugs. Her urine tox screen was positive last admission for marijuana and opiates. REVIEW OF SYSTEMS Impossible to obtain as patient herself is a very poor historian. PHYSICAL EXAMINATION GENERAL APPEARANCE: Somnolent, but arousable, thin, 21-year-old female Unit #: [id number] #: [id number] Patient: BURDEN,PHILLIP F currently in no acute distress. VITAL SIGNS: Temperature 97.7, pulse 107, respirations 24, blood pressure 123/83, O2 saturation is 100% on room air. HEENT: Eyes: PERRLA. Pharynx is benign. NECK: Supple without adenopathy or thyromegaly. CHEST: Clear. CARDIAC: Normal S1 and S2 without murmur. ABDOMEN: Bowels sounds are diminished. Mild generalized abdominal tenderness without rebound, guarding. No hepatosplenomegaly or masses. EXTREMITIES: Without C, C, or E. Pedal pulses are present. No ulcers on the feet. There is a hammertoe, right foot. NEUROLOGIC EXAM: Patient is somnolent, but does arouse. Cranial nerves are intact. She moves all of her extremities. DIAGNOSTIC STUDIES ADMISSION LABS: Hematocrit 56.5, white blood count is 11.5, platelet count is 434. SMA-12: Glucose 480, sodium 133, CO2 is 7, anion gap is 25, protein 9, albumin is 5.2, alk phos 117, BHOB 3.25. ABG: pH 7.16, pCO2 20, pO2 123, O2 saturation 99.5% on room air. Urinalysis: 2+ protein, positive glucose, no significant white or red cells. ASSESSMENT 1. Diabetic ketoacidosis with nausea and vomiting. 2. Insulin dependent diabetes mellitus. 3. Noncompliance. 4. Polysubstance abuse. PLANS 1. IV fluids. 2. Insulin drip until anion gap closes. 3. Monitor electrolytes carefully. Obtain hemoglobin A1c, amylase, lipase. 4. H2 blockers, Reglan, and Zofran. 5. Urine tox screen. 6. SCDs for DVT prophylaxis. 7. Further workup and consultants depending on above. 8. Will obtain a chest x-ray in the morning if beta HCG is negative. Dictated by Jess Rhodes/pc TD: 03/08/2017 05:03 JOB #: [id number] HISTORY AND PHYSICAL Page 1 of 1 X Keren Amado MD HISTORY AND PHYSICAL
--- NOTE | ~2017-03-07 | HP ---
Unit #: [id number] #: [id number] Patient: PHILLIP BURGOS [id number] [address] [address] [id number] I MR#: [id number] NAME: PHILLIP BURGOS ROOM: [facility] Age: 21 Sex: F Admission Date: 03/07/2017 : 1995 Attending Physician: Keren Amado M.D. Primary Care Physician: Costa Abbasi M.D. HISTORY AND PHYSICAL ADDENDUM Critical care time spent evaluating this patient was 30 minutes. Dictated by Keren Amado M.D. AML/ts TD: 03/08/2017 06:02 JOB #: [id number] HISTORY AND PHYSICAL Page 1 of 1 X Keren Amado MD HISTORY AND PHYSICAL
[~2017-03-07 19:22] MED LIST changes: +CLINDAMYCIN PO; +FLORASTOR PO; +MAGOX 400400 MG PO
[2017-03-07 20:52] LABS: BASOPHIL# 0.1 X10e3 (0-0.3); BASOPHIL% 0.8 % (0-2.5); EOSINOPHIL% 0.1 % (0.0-7.0); HEMATOCRIT 56.5 % (35.0-45.0); HEMOGLOBIN 18.5 gm/dL (12.0-16.0); LYMPHOCYTE# 1.5 X10e3 (1.0-3.5); LYMPHOCYTE% 13.3 % (17.0-45.0); MEAN CELL VOLUME 99.5 FL (83-96); MEAN CORPUSCULAR HEMOGLOBIN 32.6 PG (28-34); MEAN CORPUSCULAR HGB CONC 32.8 g/dL (30-36); MEAN PLATELET VOLUME 8.2 FL (6.5-11.5); MONOCYTE# 0.8 X10e3 (0-1.0); MONOCYTE% 6.6 % (3.0-12.0); NEUTROPHIL# 9.2 X10e3 (1.5-7.1); NEUTROPHIL% 79.2 % (40-75); PLATELET COUNT 434 X10e3 (140-420); RED BLOOD COUNT 5.68 X10e (3.90-5.30); RED CELL DISTRIBUTION WIDTH 14.1 % (11.0-15.5); WHITE BLOOD COUNT 11.6 X10e3 (4.0-10.5)
[2017-03-07 20:53] LABS: DIFF IND NO
[2017-03-07 21:38] LABS: BETA HYDROXYBUTYRATE 3.25 MMOL/L (0.02-0.27)
[2017-03-07 21:40] LABS: ALBUMIN SERUM 5.2 g/dL (3.5-5.0); ALKALINE PHOSPHATASE 177 U/L (32-92); ALT (SGPT) 19 U/L (8-29); AST (SGOT) 13 U/L (14-37); BILIRUBIN, DIRECT <0.1 mg/dL (0.0-0.2); BILIRUBIN,INDIRECT 1.8 mg/dL (0.0-0.9); BILIRUBIN,TOTAL 1.9 mg/dL (0.2-2.0); BLOOD UREA NITROGEN 16 mg/dL (9-23); CALCIUM SERUM 9.4 mg/dL (8.4-10.2); CARBON DIOXIDE 7 mmol/L (22-31); CHLORIDE 101 mmol/L (100-111); CREATININE SERUM 1.3 mg/dL (0.6-1.4); GLOM FILT RATE Estimated 59.4 mL/min (>60); GLUCOSE FASTING 480 mg/dL (70-110); POTASSIUM 3.8 mmol/L (3.5-5.1); SODIUM 133 mmol/L (135-145)
[2017-03-07 21:44] LABS: URINE SOURCE CLEAN CATCH
[2017-03-07 22:13] LABS: URINE APPEARANCE CLEAR; URINE BILIRUBIN NEG (NEG); URINE BLOOD TRACE (NEG); URINE COLOR YELLOW; URINE GLUCOSE >1000 MG/DL (NEG); URINE KETONE 3+ (NEG); URINE LEUKOCYTE ESTERASE NEG (NEG); URINE NITRATE NEG (NEG); URINE PROTEIN 2+ (NEG); URINE SPECIFIC GRAVITY 1.032 (1.003-1.035); URINE UROBILINOGEN 0.2 MG/DL (NEG)
[2017-03-07 22:17] LABS: URBCS1 AUWI 0-2 /[HPF] (0-2); URINE BACTERIA AUWI NEG (NEGATIVE); URINE SQUAMOUS EPITHELIAL CELL OCC /[HPF]; UWBCS1 AUWI 0-2 (0-5)
[2017-03-07 22:19] LABS: CULTURE INDICATED? NO
[2017-03-07 22:23] LABS: ARTERIAL BLD GAS O2 SATURATION 99.5 % (90.0-100.0); ARTERIAL BLOOD GAS ALLEN TEST NORMAL; ARTERIAL BLOOD GAS ART SITE RIGHT RADIAL; ARTERIAL BLOOD GAS CARBOXY HB 1.2 %sat (0.0-9.0); ARTERIAL BLOOD GAS DELIVERY ROOM AIR; ARTERIAL BLOOD GAS HCO3 7.2 mmol/L; ARTERIAL BLOOD GAS MET HB 0.8 %sat (0.0-2.0); ARTERIAL BLOOD GAS PCO2 20.1 mmHg (35.0-45.0); ARTERIAL BLOOD GAS pH 7.164 (7.350-7.450); ARTERIAL DRAW? YES
[2017-03-08 06:28] LABS: BUN/CREATININE RATIO 46.66; CALCIUM SERUM 8.6 mg/dL (8.4-10.2); CREATININE SERUM 0.6 mg/dL (0.6-1.4); GLOM FILT RATE Estimated 132.1 mL/min (>60); POTASSIUM 4.6 mmol/L (3.5-5.1)
[2017-03-08 13:05] LABS: CALCIUM SERUM 8.5 mg/dL (8.4-10.2); CREATININE SERUM 0.5 mg/dL (0.6-1.4); GLOM FILT RATE Estimated 140.3 mL/min (>60); PHOSPHOROUS 1.6 mg/dL (2.5-4.6); POTASSIUM 3.3 mmol/L (3.5-5.1)
[2017-03-08 19:03] LABS: CALCIUM SERUM 8.6 mg/dL (8.4-10.2); CREATININE SERUM 0.4 mg/dL (0.6-1.4); POTASSIUM 3.3 mmol/L (3.5-5.1)
== END 2017-03-08 19:25 | disposition left against medical advice (07) | DRG 639 ==
LOC: CED 19:22 → CEDOF 23:27 → CICCU3 03-08 00:20 → CEDOF 03-08 00:20 → CICCU3 03-08 08:01
PROVIDERS: Emergency Medicine; Internal Medicine
DX: E10.10 Type 1 diabetes mellitus with ketoacidosis without coma (principal); F11.10 Opioid abuse, uncomplicated; Z83.3 Family history of diabetes mellitus; F17.200 Nicotine dependence, unspecified, uncomplicated; F12.10 Cannabis abuse, uncomplicated; Z91.14 Patient's other noncompliance with medication regimen; M20.41 Other hammer toe(s) (acquired), right foot
CPT/HCPCS: 36415; 36600; 80048; 80076; 81003; 82010; 82803; 82947; 84100; 84703; 85025; 93005; 96361; 96374; 96375; 96376; 99285; J1815; J2405; J2765